=== PATIENT | female | born 1950 | race Caucasian/White ===

== ENCOUNTER 2017-01-18 09:52 | Inpatient (IN) | payer MEDICARE ==
[~2017-01-18] VITALS: Ht 157.5 cm; Wt 117.1 kg
--- NOTE | ~2017-01-18 | WND ---
ADMIT: 01/18/2017 RM/LOC: 508 [facility] MR#: [id number] [id number] [place], [place] [address] MATTHEW MCKINLEY [address] [place] [address] Wound Care Clinic SEX: F AGE: 66 : 1950 DATE OF VISIT: 01/24/2017 TIME IN: 1000 hours. TIME OUT: 1030 hours. REASON FOR VISIT: Re-evaluation of skin concerns. Request for wound care from Dr. Robert. HISTORY OF PRESENT ILLNESS: This is a 66-year-old, female, who was first seen by Wound Care on 01/19/2017. 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 She was treated at [facility]. She had lost mobility in her legs and was sent to [facility] for further evaluation and treatment. She is followed by Dr. Lars Robert from Neurology. It was also noted that she had a pelvic mass and she is being followed by Dr. Matilde Houston. She does have a biopsy scheduled for Interventional Radiology later today. She has also been seen by Dr. Tabares, who had noted that she never had a colonoscopy and certainly one could be done. However, it is not felt that this is related to the tumor around her spine nor her pelvic mass. Wound Care was consulted for cellulitis to her bilateral lower extremities. Current treatment to the right lower extremity is Aloe [place] applied daily to the left lower extremity where the ulcerations are, Xeroform applied daily. Wound Care returns today for further evaluation. REVIEW OF SYSTEMS: She is examined in her hospital room where she is awake, alert, and oriented x3. She is on a low air loss mattress. She is currently n.p.o. for her procedure later today. She denies any recent fever or chills. No nausea or vomiting. No cough, cold, or chest pain. She states her appetite has been decreased. She does have right hip pain but denies any pain to her left lower extremity. PHYSICAL EXAMINATION: VITAL SIGNS: 98.9, 90, 18, blood pressure 105/56, O2 sats on room air 96%. Focused exam is to her sacral, coccyx, and buttocks area, shows no open areas. Focused exam to the groin folds and pannus folds shows a clearing of her moisture-associated dermatitis. Focused exam to the right lower extremity shows a decrease in the brown plaques near her gaiter area. On the plantar surface of her heel is an area of old scar tissue. There are two openings; one that measures 1.5 x 0.4 with a depth of 0.2 cm and the other is 1 x 0.4 with depth of 0.2 cm. Both have pink wound bases. There is epithelialization down the sides of the wound. This is surrounded by old scar tissue. Posterior tibialis and dorsalis pedis is 1+. Focused exam to the left lower extremity shows a decrease in edema from previous exam today. Her foot measures 23.5 cm, ankle is 28.5 cm, and calf 20 ADMIT: 01/18/2017 RM/LOC: 508 [facility] MR#: [id number] [address] [place] [id number] MATTHEW MCKINLEY [address] [place] [address] Wound Care Clinic SEX: F AGE: 66 : 1950 cm, malleolus is 45.5 cm. She has an open area on the medial vargas that measures 1 x 1 with a depth of 0.1 cm and dark red base. More distal to this is an ulceration more anteriorly that measures 2 x 2.5 with a depth of 0.2 cm. 50% of the wound base is black eschar and 50% is red tissue. She also has a thin crust that measures 0.7 x 0.8 cm, dark brown in nature more laterally. None of these areas have any residual erythema noted. ASSESSMENT: 1. Healing bilateral lower extremity ulcerations. 2. Healing full-thickness cutaneous ulcerations, left lower extremity. 3. Healing moisture-associated dermatitis in the groin and pannus folds. TREATMENT PLAN: We will continue with the current treatment plans as already ordered including pressure relief methods. Aloe [place] to the bilateral lower extremities. Xeroform to the open areas on left lower extremity. To the heel, we will continue with the Mepilex border. Thank you for this referral. Wound will follow while she is inpatient. Melissa Wade APRN/ shelbie JOB #: [id number] CC: Sisi Garcia, Attending Physician Sisi Garcia, Family Physician
--- NOTE | ~2017-01-18 | WND ---
ADMIT: 01/18/2017 RM/LOC: 512 [facility] MR#: [id number] [id number] [place], [place] [address] MATTHEW MCKINLEY [address] [place] [address] Wound Care Clinic SEX: F AGE: 66 : 1950 DATE OF VISIT: 01/31/2017 TIME IN: 1155 hours. TIME OUT: 1210 hours. REASON FOR VISIT: Evaluation and treatment of skin concerns. A request for wound care from Dr. Robert. HISTORY OF PRESENT ILLNESS: This is a 66-year-old, female, first seen by Wound Care on 01/19/2017. 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 She was treated at [facility]. She has lost mobility in her legs and was sent to [facility] for further evaluation and treatment. She is followed by Dr. Lras Robert from Neurology. Dr. 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 Surgery was on 01/27/2017. This is her fourth postop day. During her surgery, she also had a pelvic exam under anesthesia. Dr. Houston reports that the uterus felt enlarged and anteverted but no palpable adnexal masses; however, limited secondary to the patient's body habitus. 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 She is now followed by Dr. Bedoya from Oncology. Plans are to eventually send her to [facility] for further evaluation and cares. It is also recommended that she have sigmoidoscopy or colonoscopy in the future. Wound Care has been following for skin concerns. On her last exam, the pannus folds and the buttocks were healed. Currently followed for bilateral lower extremity ulceration. REVIEW OF SYSTEMS: She is examined in her hospital room where she is sound asleep. She does not awaken to her name or at all during the exam. PHYSICAL EXAMINATION: VITAL SIGNS: Temperature is 97.6, pulse 62, respirations 18, blood pressure 120/53, O2 sats on room air is 97%. Focused exam to the right lower extremity shows foot circumference is 26 cm, ankle 32 cm, and calf 20 cm, malleolus is 44 cm. On the plantar heel is an area of callus material as well as a small slit that now measures 0.6 x 0.2 with a depth of 0.1 cm. It does have a pink base. The brownish plaques on her gaiter area are loosening and easily removed. She does have edema to her bilateral lower extremities with the right leg more swollen than the left. Posterior tibialis and dorsalis pedis is 1+ bilaterally. To the left lower extremity, foot circumference is 23 cm, ankle is 28 cm, and calf 20 cm, malleolus is 44.5 cm. To the medial side of her calf are two remaining ulcerations; one that measures 0.7 x 0.5 with depth of 0.1 and the second 1.5 x 1.5, depth of 0.2. Both have moist pink wound bases. The rest of her ulcerations are healed. She does have hyperpigmentation noted, periwound ADMIT: 01/18/2017 RM/LOC: 512 [facility] MR#: [id number] [address] [place] [phone] MATTHEW MCKINLEY [address] [place] [address] Wound Care Clinic SEX: F AGE: 66 : 1950 area. She does have changes associated with longstanding edema noted to bilateral lower extremities. ASSESSMENT: 1. Full-thickness healing ulceration to left lower extremity secondary to venous insufficiency and previous edema. 2. Healing wound and callus material, right heel. TREATMENT PLAN: The old dressings were removed without difficulty. The wounds were washed with warm soapy water, rinsed, and patted dry. The plaques were removed from bilateral gaiter area revealing pink tissue. To the left lower extremity, Xeroform was placed over the ulcerations, held in place with Kerlix. To the right heel area, a Mepilex border was applied. At this point in time, we will continue with current treatment plan. Continue to elevate her heels above the surfaces. Continue with position changes every 2 hours and Xeroform to the right lower extremity daily. Thank you for this referral and Wound will follow while she is inpatient. Melissa Wade APRN/ shelbie JOB #: [id number] CC: Sisi Garcia, Attending Physician Sisi Garcia, Family Physician
--- NOTE | ~2017-01-18 | PR ---
ADMIT: 01/18/2017 RM/LOC: 512 [facility] MR#: [id number] [id number] [place], [place] [address] PHUONG DONALDSON [address] [place] [address] Progress Note SEX: F AGE: 66 : 1950 DATE: 02/04/2017 Summary note to summarize hospital stay from January 18 through today, February 03, 2017. Ms. Donaldson was admitted initially on January 18 because she was unable to move her right leg. CT scan revealed severe stenosis, and she also had other workup that revealed a mass in the pelvis of 20 cm diameter encroaching and involving the psoas muscle on the right. Her urine was infected and eventually cultured E coli. Neurosurgery was consulted as was Gynecology and surgery. Neurosurgery recommended laminectomy once the urine infection was cleared. She was on antibiotics for 7 days, and a repeat urinalysis was negative. On January 27, she underwent open lumbar laminectomy of L5-4 and L5-sacral one. Neurosurgeon noted there was considerable scar tissue in the area, and Phuong may have suffered a little bit of cerebrospinal fluid leak. She was kept flat in bed for 48 hours postoperatively. During her anesthesia for the laminectomy, she also underwent pelvic exam and Pap test by the bioinformatics analyst, Dr. Houston. The final Pap result is still pending. Cervix looks normal by visual inspection according to Dr. Houston. The patient also had undergone a needle biopsy of the mass in the pelvis. That biopsy was done on January 24, 2017. 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 She also had a needle biopsy of a thyroid mass, which showed pathology of medullary carcinoma. To help elucidate the primary cancer causing the metastatic mass in her belly, she has undergone the Pap test as well as colonoscopy. Colonoscopy was today, February 03. Two polyps were biopsied in the left colon, but otherwise there was ADMIT: 01/18/2017 RM/LOC: 512 [facility] MR#: [id number] [address] [place], [place] [address] PHUONG DONALDSON [address] [place] [address] Progress Note SEX: F AGE: 66 : 1950 no obvious mass, stricture, or other abnormalities. No rectal or vulvar mass has been found. The patient started to have increasing bladder pain, and a repeat urinalysis on February 01 revealed pyuria once again. 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 Her Rocephin was switched to linezolid today, February 03. This patient has chronic partial paraplegia since the spine surgery approximately 20 years ago and has the diagnosis of subacute necrosis with secondary leg weakness for the last 20 years but had this abrupt change which brought her to the hospital. Sisi Garcia MD/ leigha JOB #: [id number] CC: Sisi Garcia MD, Attending Physician Sisi Garcia MD, Family Physician
--- NOTE | ~2017-01-18 | WND ---
ADMIT: 01/18/2017 RM/LOC: 508 [facility] MR#: [id number] [facility]#: [id number] [address] [address] MATTHEW MCKINLEY [address] [place] [address] Wound Care Clinic SEX: F AGE: 66 : 1950 DATE OF VISIT: 01/19/2017 TIME IN: 8:00 TIME OUT: 8:30 REASON FOR VISIT: Evaluation and treatment of bilateral lower extremities. This is request for wound care from Dr. Robert. HISTORY OF PRESENT ILLNESS: This is a 66-year-old female, who is a patient of Dr. Garcia. She has a history of a tumor that was diagnosed in 1989 as a benign spinal cord tumor. She was treated at [facility] and was partially removed. Since that time, she has been able to get around with a shuffling-type gait in a walker and has been able to care for herself. She was seen in the emergency room yesterday after she had more and more difficulty with movement. She was unable to lift her right leg. She was able to move her toes, and she also has difficulty with movement in her left foot. Therefore, she was admitted for further evaluation and care. Requests were sent to [facility] for the biopsy reports from her tumor. She states she has had ulcerations on her left lower extremity that has been on and off for "decades." She said she usually puts an antibiotic cream on it, she does not recall the name, it goes away; however, it reappears. She also states that she has never worn compression. PAST MEDICAL HISTORY: Chronic venous stasis, edema in bilateral lower extremities. Chronic cutaneous ulcerations in left leg. Severe stenosis. Obesity. Left hip pain. Chronic bilateral lower extremity edema. ALLERGIES: Codeine. CURRENT MEDICATIONS: 1. Cleocin. 2. Ditropan. 3. HydroDIURIL. 4. Klor-Con. 5. Lasix. 6. Lopressor. 7. Vasotec. 8. Lovenox. 9. Mycostatin powder. 10.Normal saline. P.r.n. Medications: 1. Advil. 2. Aspirin. 3. Colace. 4. Maalox. 5. Tylenol. 6. Tylenol suppository. 7. Nitrostat. ADMIT: 01/18/2017 RM/LOC: 508 [facility] MR#: [id number] [address] [address] MATTHEW MCKINLEY [address] [place] [address] Wound Care Clinic SEX: F AGE: 66 : 1950 8. Mycostatin powder. SOCIAL HISTORY: She is a high school education. She never smoked. She never used any alcohol or chemical use. She is single. She resides in [place]. She states her home she is living in does not accommodate a wheelchair. Records indicate she lives with her sister. She does not have any children. She is retired from rental clerk tool and equipment work. FAMILY HISTORY: According to records is significant for heart disease and hypertension. PAST SURGICAL HISTORY: Tonsillectomy and back surgery in 1989 with removal of benign spinal cord tumor. REVIEW OF SYSTEMS: She is examined in her bed, where she is awake, alert, and oriented x3. She denies any recent fever or chills. No nausea or vomiting. No cough, cold, or chest pain. She states her appetite has been good. No nausea or vomiting. She states she has no sensation to her legs; however, she does have extreme pain to her right hip that she relates to the abdominal tumor. PHYSICAL EXAMINATION: FOCUSED EXAM: Body-wide skin exam was done. She does have some moisture and slight redness in her pannus and groin folds. No ulcerations noted. To her bilateral lower extremities, she does have firm edema. She has squared off toes with Stemmer sign positive. She does have brownish plaque to the gaiter area of the bilateral lower extremities and she has been unable to reach her feet in order to wash them. To the right lower extremity, foot circumference is 26.5 cm, ankle 36 cm, and calf 20 cm, malleolus is 53 cm. Posterior tibialis and dorsalis pedis is 1+. On the anterior surface of her right leg is an area that measures 3 cm x 4 cm with red erythema. No open areas noted. No drainage noted. To the left lower extremity, foot circumference 23.5 cm, ankle 30.5 cm, and calf 20 cm, malleolus is 53 cm. She does have faint erythema noted from her knee down toward her gaiter area. On the medial anterior calf and vargas is an area that measures 7 x 16 cm that has increased redness and edema with scattered crust and open areas noted. Some serosanguineous drainage noted to the areas. Medially, on the left lower extremity vargas is an ulceration that measures 1.3 cm x 1.2 cm, depth of 0.2 cm. This initially had a crust that was removed revealing yellow base. Distal to this is an ulceration that measures 2.1 cm x 2.5 cm, depth of 0.2 cm. This has a bright red slightly dry wound base. Adjacent to this, more anteriorly is a thin crust that measures 0.8 cm x 1.2 cm. There is also more anteriorly a dark red crust that measures 0.7 cm x 0.7 cm. Periwound area shows the erythema as well as scarring from previous issues. ASSESSMENT: 1. Bilateral lower extremity venous insufficiency. Cutaneous full-thickness ADMIT: 01/18/2017 RM/LOC: 508 [facility] MR#: [id number] [address] [place] [phone] MATTHEW MCKINLEY [address] [place] [address] Wound Care Clinic SEX: F AGE: 66 : 1950 ulcerations of left lower extremity, complicated by cellulitis. 2. Moisture in groin and pannus folds. TREATMENT PLAN: She already has nystatin powder ordered twice a day. Requested that the staff wash the folds with warm soapy water and dry prior to the nystatin being applied to the groin folds. Recommended she be on a low air loss mattress as she is at high risk for further skin breakdown. Recommended chair air cushion. Heels floated off all surfaces. To the bilateral lower extremities, recommended daily wash with antibacterial soap and water. Aloe [place] applied to the lower extremities, especially to the areas of the brown plaques in order to soften and help them be removed. To the open areas on the left lower extremity, recommended Xeroform with Kerlix after washing. Size medium EdemaWear from the toes to popliteal crease to help with edema. She voiced understanding of physical findings and treatment plan. Thank you for this referral, and Wound will follow. Melissa Wade APRN/ shelbie JOB #: [id number] CC: Sisi Garcia, Attending Physician Sisi Garcia, Family Physician
--- NOTE | ~2017-01-18 | CO ---
ADMIT: 01/18/2017 RM/LOC: 508 [facility] MR#: [id number] [address] [address] MATTHEW MCKINLEY [address] [place] [address] Consultation SEX: F AGE: 66 : 1950 DATE OF CONSULTATION: 01/20/2017 ATTENDING PHYSICIAN: Sisi Garcia CONSULTING PHYSICIAN: Matilde Houston MD REASON FOR CONSULTATION: Pelvic mass. HISTORY OF PRESENT ILLNESS: This is a 66-year-old female who was admitted to the emergency room on 01/18/2017. She presented to the emergency room with complaints of lower extremity weakness. Per her history, she did have surgery for a benign spinal cord tumor back in 1989. She does report that there was some "permanent damage," and she did require using a walker to walk. Over the past two years, she has been increasingly using a wheelchair, but has been able to shuffle and go 10 to 15 feet with her walker around her house. On the morning of admission, she was noted that she could not move her legs as much and this made her panic and therefore, she presented to the emergency room. While in the emergency room, she did have an MRI scan of her lumbar spine showing severe lumbar spinal stenosis as well as the tumor extending into the right iliopsoas muscle. Subsequently, she had both pelvic CT and pelvic ultrasound, which demonstrated a large complex mass, at least partially cystic in the right adnexal region measuring approximately 12 to 20 cm in craniocaudal dimension. The mass is difficult to determine if it is extending from the ovary and it is difficult to measure given irregular in nature. PAST MEDICAL HISTORY: She has chronic venous stasis and edema in both lower extremities, hypertension, urinary urgency. She denies history of diabetes, asthma, kidney problems, or thyroid problems. PAST SURGICAL HISTORY: Tonsillectomy and removal of paraspinous tumor in 1989. SOCIAL HISTORY: She is not . She does not have any children. She has never been . She denies tobacco, excessive alcohol, or drug use. ALLERGIES: CODEINE. CURRENT MEDICATIONS: Enalapril/hydrochlorothiazide 10/25 one p.o. daily, fish oil 1000 mg b.i.d., Lasix 20 mg b.i.d., Lopressor 25 mg daily, oxybutynin extended-release 10 mg daily, potassium 20 mEq two b.i.d., aspirin 325 mg daily. REVIEW OF SYSTEMS: GENERAL: She does report a gradual decline with her ability to get around. She denies fevers, chills, weight loss, or weight gain. HEENT: She denies headaches, vision changes, difficulty swallowing, sore throat. NECK: She denies neck pain or stiffness. RESPIRATORY: She denies coughing or shortness of breath. ADMIT: 01/18/2017 RM/LOC: 508 [facility] MR#: [id number] [address] [place], [place] [id number] MATTHEW MCKINLEY [address] [place] [address] Consultation SEX: F AGE: 66 : 1950 CARDIOVASCULAR: She has history of hypertension. She denies chest pain, palpitations, or shortness of breath. GASTROINTESTINAL: She denies any changes in her stools, abdominal pain, nausea, or vomiting. GENITOURINARY: She does have problems with chronic urinary incontinence. She does wear protection daily for this. She denies postmenopausal bleeding, pelvic pain, or vaginal bleeding at all. MUSCULOSKELETAL: She does have history of surgery on her back for a spinal cord tumor and chronic lower leg extremity weakness. NEUROLOGIC: Again, she has history of surgery on her back and spinal cord. She does have chronic right lower extremity weakness more so than the left. PHYSICAL EXAMINATION: VITAL SIGNS: Temperature is 99.3, pulse 84, respirations 18, blood pressure is 130/66. GENERAL: This is a pleasant female, in no acute distress. ABDOMEN: Obese. She has some tenderness on the left side. There is no guarding or rebound. Her abdomen is soft, difficult to palpate any abdominal mass. PELVIC: Deferred at this time given her inability to cooperate. EXTREMITIES: She does have marked edema in both extremities, and chronic venous stasis. Her strength and motion are limited bilaterally. LABORATORY DATA: White blood cell count is 11.7, hemoglobin 8.7, hematocrit 29.4, platelet count 509. Hemoglobin A1c is 6.6. Sodium 138, potassium 3.9, chloride 104, CO2 is 25, BUN 19, creatinine 0.5, glucose 122, calcium 10. Urine culture does show gram-negative rods. An MRI of the spine showed severe acquired central stenosis L4-L5, severe degenerative changes at L3-L4. CT scan of the abdomen shows a complex septated cystic mass within the right iliopsoas muscle extending from the level of L2 inferiorly infiltrating the psoas muscle and extending into the right side of the pelvis, measuring approximately 20 x 9.6 cm. Ultrasound confirms a large complex cystic mass on the right adnexal region, measuring approximately 12.7 x 8 x 8 cm. IMPRESSION: 1. This is a 66-year-old female, 0 with acute weakness in her right leg on top of chronic lower extremity weakness secondary to previous surgery for a spinal cord tumor. 2. Pelvic mass of uncertain origin. ADMIT: 01/18/2017 RM/LOC: 508 [facility] MR#: [id number] [address] [address] MATTHEW MCKINLEY [address] [place] [address] Consultation SEX: F AGE: 66 : 1950 3. Hypertension. 4. Chronic urge incontinence. 5. Morbid obesity. 6. Chronic venous insufficiency. 7. History of Foix-Alajouanine syndrome. PLAN: At this time, I am uncertain that this pelvic mass is contributing to her weakness or ovarian in nature. We will draw a CA-125 and the plan discussed with [facility]Oncology in [place]. If they do feel it is concerning enough, we will consider transfer to [place] for further management. Otherwise, we can consider CT-guided biopsy of this mass in an attempt to get a better diagnostic picture. Matilde Houston MD/ shelbie JOB #: [id number] CC: Sisi Garcia, Attending Physician Sisi Garcia, Family Physician
--- NOTE | 2017-01-19 08:12 | HP ---
ADMIT: 01/18/2017 RM/LOC: 508 [facility] MR#: [id number] [id number] [place], [place] [address] MATTHEW MCKINLEY [address] [place] [address] History and Physical SEX: F AGE: 66 : 1950 DATE OF SERVICE: CHIEF COMPLAINT: Inability to use right leg. HISTORY OF PRESENT ILLNESS: José Manuel is a very nice 66-year-old female, who is a patient of Dr. Garcia and our office. 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 It was pressing on her spinal cord. She had it partially removed in [place] that year. Since then, she has been able to get around with a shuffling type gait, had been using a walker up until about 2-3 years ago. Since then, she states it is getting harder and harder for her to walk primarily due to right leg weakness. She is still able to move her leg and can get around with a walker up until today. She has been using a wheelchair quite a bit the last 2 years, but at home if she needs to go 10-15 feet, she can get there with her walker. She does live with her twin sister who helps care for her. She does have a modified car and was able to drive up until recently. Nothing unusual happened yesterday, however, this morning when she awakened, her right leg would not respond, she could get it to move. She can wiggle her toes on the right foot but could not move her right leg at all. Denies any pain. Denies any injury or trauma. She was brought into the emergency room and MRI scan of her lumbar spine shows severe lumbar spinal stenosis. She also has a tumor in the right iliopsoas muscle either cyst or blood versus soft-tissue tumor, they were not able to identify it completely. Dr. Lars Robert, neurosurgeon is seeing her in the emergency room has asked that we admit her for medical care and he will consult. She does have chronic venous stasis and edema of both lower extremities and chronic sores, ulcerations on the left leg, but no sores in the right leg. She denies any recent problems with fevers, chest pain, or shortness of breath. PAST MEDICAL HISTORY: OPERATIONS: The only surgery she has tonsillectomy in her youth and the back surgery in 1989, removal of spinal cord tumor that she says was benign and they got most of it. SOCIAL HISTORY: Never . No children. Does not use tobacco. Drinks alcohol very rarely socially. She lives with her twin sister, Clarice. FAMILY HISTORY: Father in his 60s of kidney failure. He had COPD. Mother in her late 60s of lung condition. She has older sister who recently at age 83 of a stroke. Her twin sister had an HI a year ago and her brother has history of colon cancer and has had a heart valve replaced x2. ALLERGIES: CODEINE. MEDICATIONS: 1. She takes enalapril/hydrochlorothiazide 10/25 one daily. ADMIT: 01/18/2017 RM/LOC: 508 [facility] MR#: [id number] [address] [place] [id number] MATTHEW MCKINLEY [address] [place] [address] History and Physical SEX: F AGE: 66 : 1950 2. Fish oil 1000 mg b.i.d. 3. Lasix 20 mg b.i.d. 4. Lopressor 25 mg daily. 5. Oxybutynin extended release 10 mg daily. 6. Potassium 20 mEq two b.i.d. 7. Aspirin 325 mg daily. REVIEW OF SYSTEMS: GENERAL: She states she has had a gradual decline in the last couple years in her ability to get around at home and she is using a wheelchair much more now than she used to. She used to get around with a walker as noted above. She denies any weight change, any recent fever or appetite change. HEENT: Denies any headache, blurry vision, or double vision. PULMONARY: Denies any cough, shortness of breath. CARDIAC: History of hypertension. No chest pain. GI: No change in stools and no abdominal pain. : Chronic urinary incontinence. Wears Depends. MUSCULOSKELETAL and NEUROLOGICAL: The spinal cord tumor surgery is noted. Lower leg extremity weakness with the right leg weaker than the left leg which is chronic and not acute. Right leg weakness noted above in HPI. Rest of review of systems negative. PHYSICAL EXAM: GENERAL: A 66-year-old female. She is alert, cooperative, oriented x3. VITAL SIGNS: BP is 120/78, respiratory rate 22, pulse 72 and regular, temp 98.2, and O2 saturation 94% on room air. HEENT: Eyes; PERRLA. EOMs intact. TMs not seen. Throat is moist, not inflamed. NECK: Supple. No meningeal signs. No lymphadenopathy. LUNGS: Clear anteriorly. No respiratory distress. No retractions. HEART: Regular rate. No murmur. BREASTS: Not examined. ABDOMEN: Obese. No organomegaly or tenderness. /RECTAL: Deferred. EXTREMITIES: She has marked edema of both lower extremities with chronic venous stasis dermatitis changes and some venous insufficiency type abrasions/ulcers on her left lower extremity with some brownish discolored skin there. Right lower extremity does not have any sores on it. Calves are nontender. She can move her left leg, flexing her knee only about 10 degrees. She cannot really flex her hip up at all. She is able to wiggle her left ankle freely. Right leg, she is not able to move at all. She can wiggle her toes, but that said she cannot get any foot or ankle movement or known knee movement. 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 DIAGNOSTIC IMPRESSION: ADMIT: 01/18/2017 RM/LOC: 508 [facility] MR#: [id number] [address] [address] MATTHEW MCKINLEY [address] [place] [address] History and Physical SEX: F AGE: 66 : 1950 1. 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 2. History of Foix-Alajouanine syndrome. 3. Hypertension. 4. Chronic urge incontinence. 5. Morbid obesity. 6. Chronic venous insufficiency. PLAN: Admit to hospital at this time. We will continue on her blood pressure medications. Lovenox for DVT prophylaxis if this is okay with Neurosurgery. Dr. Robert asked to review her films and her exam to determine if there is anything that can be done surgically. Les Billy MD/ shelbie JOB #: [id number] CC: Sisi Garcia, Attending Physician Sisi Garcia, Family Physician
--- NOTE | 2017-01-25 15:26 | CO ---
ADMIT: 01/18/2017 RM/LOC: 508 [facility] MR#: [id number] ACC#: [id number] [address] [address] MATTHEW DONALDSON [address] [place] [id number] Consultation SEX: F AGE: 66 : 1950 DATE OF CONSULTATION: 01/19/2017 ATTENDING PHYSICIAN: Sisi Garcia CONSULTING PHYSICIAN: Lars Robert MD REASON FOR CONSULTATION: Weakness. HISTORY OF PRESENT ILLNESS: I was called to the ER to see the patient. She has had a couple years worth of swelling in her legs and some difficulties ambulating that had been getting worse over that time, especially worse over the last few months, and she awakened today with inability to support her own weight. She had been utilizing a walker ever since she was diagnosed with some paraspinous tumors in 1989, there has apparently been no followup on this at any point, she said she was told that they were slow-growing benign tumors and there is no sign that she has had any imaging in the last 27 years after the initial biopsy, she does not know the type of tumors or the final formal diagnosis. She has had occasional urinary incontinence that is chronic. No noted urinary incontinence or constipation or bowel incontinence today. PAST MEDICAL HISTORY: 1. Tonsillectomy. 2. Paraspinous tumor in 1989. 3. Urinary urgency. 4. Hypokalemia. 5. Hypertension. 6. Chronically edematous legs with nonhealing wounds. MEDICATIONS: 1. Oxybutynin. 2. Potassium chloride. 3. Metoprolol. 4. Furosemide. 5. Enalapril. 6. Hydrochlorothiazide. 7. Aspirin. 8. Ibuprofen. 9. Aleve. SOCIAL HISTORY: She is a nonsmoker, drinks rarely, lives with her sister, and is not . FAMILY HISTORY: Renal failure, COPD, stroke, myocardial infarction, and colon cancer. ALLERGIES: CODEINE. REVIEW OF SYSTEMS: Complete review of systems was obtained with pertinent positives annotated in the history of present illness. ADMIT: 01/18/2017 RM/LOC: 508 [facility] MR#: [id number] [address] [address] MATTHEW DONALDSON [address] [place] [address] Consultation SEX: F AGE: 66 : 1950 PHYSICAL EXAMINATION: VITAL SIGNS: 98 degrees, 95 beats, 20 respirations, 146/57, 97% on room air. GENERAL: She is an unhealthy appearing 66-year-old woman, who is very morbidly obese. HEENT: She has an atraumatic head. No scleral icterus. Clear oropharynx. ABDOMEN: Obese, nontender. CHEST: Normal respiratory excursion. EXTREMITIES: With 2+ radial pulses. Severe edema in her legs, with the left leg with nonhealing wounds and erythema. No clear purulence. NEUROLOGICAL EXAMINATION: MENTAL STATUS: She is awake, alert, and oriented x4. She has no dysphonia, dysarthria, or aphasia. Her affect is appropriate. Thought content is normal. CRANIAL NERVES: Cranial nerves II through XII are individually tested and found to be intact without deficit. MOTOR EXAM: Motor exam reveals 5/5 strength in the upper extremities, 2/5 strength in bilateral lower extremities. DEEP TENDON REFLEXES: With 0/4 in the lower extremities, 2/4 in the upper extremities. SENSATION: Decreased below the knees to light touch, appears to be normal above the knees, appears to be normal in the arms. CEREBELLAR: No cerebellar signs. GAIT: Not testable. LABORATORY DATA: White count 12.5. Sedimentation rate 88. Urine is cloudy with 3+ leuk esterase. ASSESSMENT AND PLAN: Ms. Donaldson is an unfortunate woman with subacute deterioration. Without knowing the history on these tumors, I cannot say if this is something that has had malignant degeneration. She has multiple tumors in the iliopsoas and anterior to the spinal column as well. I do not see any sign of there being a tumor in her back. She does have prior laminectomy defects. There is severe acquired degenerative stenosis at lumbar 4-5 with complete canal occlusion and is a lesion alongside the 2-3 level in the psoas musculature extending down to the 3-4 level. There are also what appears to be multiple cystic possibly lesions distal to that as well as some lesions in the gluteal region as well, mostly on the right. I spoke with Dr. Ferreira, we are going to attempt to get an EMG and nerve conduction study to evaluate whether this is a lumbosacral plexopathy, I think he is aware she is likely going to need surgery for her acquired degenerative disease in her back which would be a laminectomy. Could possibly consider minimally invasive laminectomy although with her prior surgical history, it may be easier to continue from midline and fashion an open laminectomy. I do not see anything intracanalicular. I do want to obtain the reports from the [facility] if they ADMIT: 01/18/2017 RM/LOC: 508 [facility] MR#: [id number] [facility] [address] MATTHEW DONALDSON [address] [place] [address] Consultation SEX: F AGE: 66 : 1950 have been following, if the tumors in the psoas muscle or what the initial presentation was, we need to find out what those are or if this laminectomy was for an intradural exploration and resection, then that may be a different matter. Although, it would certainly make a laminectomy little more difficult going back to scar tissue with a prior durotomy. It is also possible to have malignant degeneration in what I presumed would be a schwannoma or neurofibroma; if that is the case, we will need to know that she may end up needing a biopsy of these other tumors. At this point, I do not know that if she is stable for surgical intervention with a high white count and a sedimentation rate of 88 that will need to be worked up further prior to any consideration of surgical intervention. I will plan to follow along while she is in the hospital here. Lars Robert MD/ shelbie JOB #: [id number] CC: Sisi Garcia, Attending Physician Sisi Garcia, Family Physician
--- NOTE | 2017-01-30 08:23 | OR ---
ADMIT: 01/18/2017 RM/LOC: 508 [facility] MR#: [id number] [address] [address] MATTHEW MCKINLEY [address] [place] [address] Operative/Delivery Room Report SEX: F AGE: 66 : 1950 SURGERY DATE: 01/27/2017 SURGEON: Lars Robert MD PREOPERATIVE DIAGNOSIS: Bilateral lower extremity weakness multifactorial in nature with severe stenosis lumbar 4-5. POSTOPERATIVE DIAGNOSIS: Bilateral lower extremity weakness multifactorial in nature with severe stenosis lumbar 4-5. PROCEDURES: 1. Lumbar 4-5 laminectomy. 2. Lumbar 5 and sacral 1 laminectomy. This case was substantially more difficult than otherwise usually encountered because the patient is approximately 30 years out from an intradural exploration and long segment laminectomy with degeneration at the endpoint of the prior laminectomy with severe scar tissue, bony overgrowth, and hypertrophy making this case substantially more difficult than usual. DESCRIPTION OF PROCEDURE: After gaining informed consent, the patient was taken to the operative theater, placed under general endotracheal anesthesia in supine position, turned prone on a Corey table. All pressure points purposely padded prior to performing the procedure. She was prepped and draped in usual sterile fashion. A time-out was utilized to ascertain the correct site and side of surgery as well as other pertinent patient historical information. Counts were obtained at the beginning and the end of the case with no change betwixt the two. Antibiotics were given within 1 hour of incision. Fluoroscope was brought into the field and was very difficult to determine levels because of the degenerative change prior to surgical intervention, and the patient has severe morbid obesity. The 4-5 level was delineated, and the inferior aspect of the prior incision was opened. After evaluation, it was difficult to place retractors due to her size and sequentially this was opened somewhat more cephalad and then had to be opened more caudally. The scar tissue was very deceiving as it was so tightly and densely adherent. I could not directly palpate bony anatomy. I was able finally to find some of the facets laterally that were more cephalad to the case. The patient had been basically recumbence in bed and her tissues were weeped edematous fluid at times during the case, although at one point, I was uncertain as to whether I was seeing that fluid were possible cerebral spinal fluid. As such, I made the determination to utilize DuraSeal at the end of the case. I finally was able to discern the L5 spinous process and very cautiously dissected down, although was densely adherent. Utilizing various curettes, rongeurs, and a high-speed drill, I fashioned the laminectomy inferiorly at the L5-S1 space and extended up. After starting at the L5-S1 level, I was very cautiously able to take this up, although there was a clear step-off of scar tissue and I was finally able to reveal dura above the 4-5 area. At this point, I turned ADMIT: 01/18/2017 RM/LOC: 508 [facility] MR#: [id number] [address] [address] MATTHEW MCKINLEY [address] [place] [address] Operative/Delivery Room Report SEX: F AGE: 66 : 1950 my attention to very cautiously decompressing this area where the scar tissue was densely adherent over top of the dura. I was not able to resect all of it without very high risk of resecting dura as well. I was finally able to remove enough to appear to decompress the thecal sac and to be able to sound into the neural foramina at 4-5 on the left. The right was so densely adherent. I was able to strip this free somewhat but had some continued scar tissue over top. Once I was finished with all of this, attention was turned to closure. Because of the question of possible CSF leak versus edematous fluid drainage, I decided to place a multilayer closure. I used 4 different packs of 0 Ethibond in a simple running fashion at 4 different levels within the scar tissue and scarred down musculature. Then, finally completing the closure with simple inverted interrupted 2-0 Vicryl and simple running 3-0 Nurolon on the skin. ESTIMATED BLOOD LOSS: 100 mL. SPECIMEN: Posterior elements. DISPOSITION: Extubated and taken to postanesthesia care unit. Lars Robert MD/ shelbie JOB #: [id number] CC: Sisi Garcia, Attending Physician Sisi Garcia, Family Physician
--- NOTE | 2017-02-04 08:17 | ER ---
ADMIT: 01/18/2017 RM/LOC: 508 [facility] MR#: [id number] [address] [place], [place] [address] MATTHEW MCKINLEY [address] [place] [address] Emergency Room Report SEX: F AGE: 66 : 1950 DATE: 01/18/2017 ADDENDUM: CHIEF COMPLAINT: Right leg unable to move. HISTORY OF PRESENT ILLNESS: This is a 66-year-old female, who has a known tumor in her spinal area that was diagnosed in 1989. When she presents to the ER, she says she thinks this tumor is wrapped around her spinal cord, but they have just been watching it. In fact, she has not seen a neurosurgeon since 1989, has not had any scans since that year also. On examination, she does have movement with her toes, but was not able to lift up the right leg. The left leg, she is able to lift up, but she really does not have much motion also with her left foot. When asking about incontinence or loss of bowel, bowels have been okay, but she has been incontinent for a few months now. COURSE IN THE EMERGENCY ROOM: I did do an MRI of her back. Overall findings, she does have severe central stenosis at L4-L5 with broad-based disk bulge. Also severe stenosis in the foramen, both on the right and left. Severe degenerative changes at L3-L4 and then also a mass in the psoas muscle. Both Dr. Lars Robert and Dr. Billy were contacted. Dr. Billy is admitting. Dr. Robert is consulting. CLINICAL IMPRESSION: 1. Severe stenosis at L4-L5. 2. Psoas muscle mass. DISPOSITION: She is stable at admit. MARY ANN Jules / Abel Ruiz MD / shelbie JOB #: [id number] CC: Sisi Garcia MD, Attending Physician Sisi Garcia MD, Family Physician
--- NOTE | 2017-02-12 14:54 | DS ---
ADMIT: 01/18/2017 RM/LOC: 512 [facility] MR#: [id number] [id number] [place], [place] [address] MATTHEW MCKINLEY [address] [place] [address] Discharge Summary SEX: F AGE: 66 : 1950 ADMISSION DATE: 01/18/2017 DISCHARGE DATE: 02/04/2017 FINAL DIAGNOSES: On transfer are: 1. 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 2. Severe spinal stenosis status post lumbar laminectomy at L4-5 and L5-S1 on 01/27/2017. 3. Urinary tract infection initially E. (Escherichia) coli treated and then recurrent infection diagnosed VRE (Vancomycin-resistant enterococci) by culture on 02/03/2017. 4. 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 5. Colonoscopy performed 02/03/2017 with polyps biopsied x2 but otherwise normal findings. 6. Pap smear with negative HPV and normal pathology done on 01/27/2017 under anesthesia. 7. Iron deficiency anemia. 8. Item chronic venous stasis with venous stasis ulcers of the lower legs followed by Wound Care. 9. Depression. 10.Chronic incontinence related to her chronic partial paraplegia. 11.Subacute necrosis secondary to spine surgery for benign tumor in the 1990s (we do not have notes from that procedure but patient has had chronic weakness requiring a walker and now wheelchair bound with steady progression). 12.Hypertension treated. 13.Hypercalcemia of malignancy newly diagnosed here in the hospital. Matthew has been living at home with her sister who has been caring for her for years. She has been somewhat noncompliant, comes to see me about once a year to refill her blood pressure pills but would decline other workup for her chronic incontinence and chronic paraplegia. She has venous stasis edema and would develop intermittent lower extremity venous stasis wounds, which would be treated topically. On the evening of January 18, she came to the hospital because that day she woke up and could not move her right leg at all which was new. She had scans and workup which is included with the transfer information. Essentially, CT showed severe spinal stenosis in the lower lumbar area, and Neurosurgery was consulted. She also had urinary tract infection which eventually cultured E. coli with multiple sensitivities. She was placed on antibiotics to clear the bladder infection prior to a planned laminectomy. As part of this workup, we also found an incidental mass in the pelvis. It is a large cystic mass, 20 cm, with some other cystic structures around it and uncertain etiology. Also as part of the workup, scan showed a thyroid nodule. For those reasons, both the thyroid and the mass in the belly were biopsied by Interventional Radiology on January 24, 2017. On January 27 after a repeat urine was clear and blood cultures had remained clear, she underwent her laminectomy, and at the same date had Pap testing under anesthesia. Surgery was complicated by lots of scar tissue and ADMIT: 01/18/2017 RM/LOC: 512 [facility] MR#: [id number] [address] [address] MATTHEW MCKINLEY [address] [place] [address] Discharge Summary SEX: F AGE: 66 : 1950 according to the neurosurgeon, there was concern for CSF leak. Therefore, she was on strict bed rest laying flat for 48 hours postoperatively. She denied headache when she was able to sit up. She has had no vomiting. She complains of low back pain, however. Over the course of the next several days, she had minimal improvement in activity. She is still incontinent and ran a fever again about 4 days postop, so repeat blood cultures and urinalysis were done. Urine showed bacteria, and so I restarted her on antibiotic with IV Rocephin because her initial culture showed sensitivity to that. However, today we did get the culture of the urine back, which shows VRE, so I am changing antibiotic coverage to linezolid. At this point, we have done all of the workup that is possible at our facility. Patient requires consultation with oncologic surgeon, and Dr. Stefany France is the recommended home performance consultant per our local oncologist. Consultants here in our hospital have included Dr. Augustin Bedoya with Oncology, Dr. Beto Tabares with General Surgery who did her colonoscopy, Interventional Radiology, who did her thyroid needle biopsy and the needle biopsy of the mass in the pelvis, and Dr. Matilde Houston with Gynecology and Dr. Lars Robert with Neurosurgery. She also has been followed by Wound Care. During the hospital stay, she has received a transfusion of 1 unit of packed red cells prior to her back surgery because hemoglobin was 7.4, and there was concern about bleeding. She had minimal blood loss, however, and her hemoglobins remained stable above 8 ever since then. She also had 1 dose of IV Venofer administered on 01/26/2017. The patient has been on IV fluids to replace potassium and also has intermittent replacement for low magnesium. Her albumin is low. She is morbidly obese but has poor muscle mass and muscle tone due to her years of debilitation. ADMIT: 01/18/2017 RM/LOC: 512 [facility] MR#: [id number] [facility] [address] [address] MATTHEW MCKINLEY [address] [place] [address] Discharge Summary SEX: F AGE: 66 : 1950 Finally, she had chronic incontinence and we did not initially place a Mcgill catheter but did place that 4 days ago because of incontinence and concern for skin breakdown. Mcgill catheter will be left in as we treat her VRE as well. On transfer to [facility] as planned, we will send laboratory notes and imaging studies. The plan is for transfer under the hospitalist's care and for consultation with oncologic surgeon to discover the primary tumor if possible that has led to this metastatic mass in the pelvis. The patient understands she has multiple medical conditions and that her care will be complicated but agrees to go to [facility] and wants to proceed with further evaluation. CODE STATUS: Full code and that was confirmed again today. Sisi Garcia MD/ leigha JOB #: [id number] CC: Sisi Garcia MD, Attending Physician Sisi Garcia MD, Family Physician
--- NOTE | 2017-02-13 08:37 | CO ---
ADMIT: 01/18/2017 RM/LOC: 508 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 HISTORY OF PRESENT ILLNESS: This is a 66-year-old female, who is currently on hospital day #7 following initial complaint of inability to stand or walk. She is also postoperative day #1 from a lumbar laminectomy and is currently on bed rest following this surgery for some concern of a CSF leak. She has a past medical history significant for a benign spinal tumor removed in 1989 and subsequently did have difficulty walking after this. She had been getting by with using a walker, but has more had to rely on wheelchairs and electric scooters getting around large retail stores. She also notes the development of some urinary incontinence related to her not being able to feel the urgency to go. She does confirm that she has some flushing although unable to quantify and does not seem to think this is too significant. Currently, she has increased lower back pain following her surgery from last night as her main complaint at this time. She denies any postmenopausal bleeding, any problems with headaches now or in the past, heart palpitations or racing heart problems. She has no dysphagia and her bowels have been functioning normally prior to hospitalization. During her week in the hospital, there has been a discovery of a 20-cm by cranial caudal measurements, irregularly shaped mass in her right pelvic area. There does seem to be a smaller and large mass near the kidney possibly adrenal. No significant liver metastasis or lung masses have been detected on CT scan. There was incidental discovery of a left-sided thyroid mass measuring 2.6 x 2.2 cm, which has subsequently been biopsied by fine needle aspiration. 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 The pelvic mass has been biopsied with core needle and prelim verbal path is confirmatory that this is not a sarcoma, but rather carcinoma with a suspicion of squamous cell histology. The mass is eroding into her right psoas muscle which likely has contributed to her increasing right-sided leg weakness. There does not appear to be any involvement of the mass with the spinal cord based on MRI and the laminectomy performed last night was more secondary to her severe stenosis rather than mass in patient. Additional imaging of her uterus reveals a thickened endometrium, which is not uncommon for someone obese as well as multiple fibroids present. She has not had any upper or lower scopes performed. PAST MEDICAL HISTORY: Significant for obesity, hypertension, chronic venous stasis and chronic edema in lower extremities, lower extremity weakness secondary to benign spinal tumor removal. ADMIT: 01/18/2017 RM/LOC: 508 [facility] MR#: [id number] [address] [place] [phone] ARLEN MATTHEW A [address] [place] [address] Consultation SEX: F AGE: 66 : 1950 PAST SURGICAL HISTORY: Tonsillectomy and paraspinous tumor in 1989. SOCIAL HISTORY: The patient is not , and does not have children, never been . She denies any tobacco or drug use and does not consume alcohol on a regular basis. She lives at home with her sister who is in better medical condition than she. ALLERGIES: CODEINE. MEDICATIONS: 1. Enalapril/hydrochlorothiazide. 2. Fish oil. 3. Lasix 20 b.i.d. 4. Lopressor 25 mg daily. 5. Oxybutynin ER. 6. Potassium 20 mEq b.i.d. 7. Aspirin 325. FAMILY HISTORY: Brother with colon cancer post surgery and chemo with no evidence of disease. No other family cancers, thyroid cancers, or renal cancers in family. REVIEW OF SYSTEMS: A complete review of systems was conducted and found to be negative except for what was mentioned above in HPI. PHYSICAL EXAMINATION: VITAL SIGNS: Temperature 99.7, pulse 97, respiratory rate 14, blood pressure 125/71, saturating 91% on room air. GENERAL: This is an obese, alert, and orientated female lying flat in a hospital bed. HEENT: Pupils are equal, round, react to light. Mouth is dry. Mucous membranes with no oral lesions. NECK: Difficult to appreciate due to obesity, but no detectable thyroid masses or lymphadenopathy. Trachea is midline. HEART: Regular rate and rhythm with no murmurs, rubs, or gallops. Distant heart sounds. ABDOMEN: Tender to palpation diffusely, obese, no appreciable hepatosplenomegaly. No appreciable masses. Bowel sounds are positive. EXTREMITIES: No clubbing, no cyanosis. There are 2 to 3+ edema in all dependent areas. MUSCULOSKELETAL: Right lower extremity is externally rotated. Unable to perform full muscle exam due to the patient's current acute pain following back surgery and requested bedrest status. She is able to wiggle her toes and dorsiflex and plantar flex her feet, but effort is decreased secondary to pain. NEUROLOGIC: Cranial nerves II through XII are grossly intact. Decreased sensation in her left toes compared to the right, unable to perform full neuro exam due to postsurgical state. PSYCH: Mood is euthymic. Affect is full and mood congruent. SKIN: No unusual masses such as neurofibromas or pigmented lesions detected, ADMIT: 01/18/2017 RM/LOC: 508 [facility] MR#: [id number] [address] [address] MATTHEW MCKINLEY [address] [place] [address] Consultation SEX: F AGE: 66 : 1950 no rashes. LABORATORY AND RADIOLOGY: WBC 14.3, hemoglobin 8.7, platelets 380. Sodium 139, potassium 3.9, bicarb 27, BUN 18, creatinine 0.6, calcium 10.7 with corrected calcium 12.6. Albumin 1.6, AST 14, ALT 12, alkaline phosphatase 114, total bilirubin 0.6. Pelvic ultrasound, thyroid ultrasound reports reviewed. Summarized above. CT chest, abdomen, pelvis images were reviewed as well as the reports. Summarized ramsey findings above. Pathology; thyroid FNA final diagnosis: Spindle cell neoplasm suspicious for medullary carcinoma. Pelvic mass final path not back. Verbal path is carcinoma not sarcoma suspicious for squamous cell carcinoma. IMPRESSION/RECOMMENDATION: A 66-year-old female with large pelvic mass and thyroid mass as well as lumbar stenosis. 1. Thyroid mass. 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 Her corrected calcium is elevated at 12.6. Thus, we will send for PTH to see if this is normal or elevated inappropriately. We will also send for MTC tumor markers, calcitonin, and CEA. It is unlikely that this medullary thyroid cancer has spread to her pelvis and is creating such a large mass in my opinion. 2. Pelvic mass. Final pathology is pending at this time. The squamous carcinoma prelim path would make it an unusual histology for ovarian or uterine origin although not impossible. There are no suspicious lung masses, and she is a nonsmoker and she does not have any dysphagia or iron deficiency anemia. Thus, there would be low yield for upper and lower scopes. We will await for the final pathology report an additional ADMIT: 01/18/2017 RM/LOC: 508 [facility] MR#: [id number] [address] [place] [phone] MATTHEW MCKINLEY [address] [place] [address] Consultation SEX: F AGE: 66 : 1950 pathologist insight prior to determining treatment plan. We will consider sending previously biopsied tissue for [employer] genetic testing to identify any potential target triple mutations. 3. Lumbar stenosis. This appears to be not related to direct mass extension but rather sequelae from remote spinal surgery. Potentially involvement of the right psoas muscle has progressed her lower extremity weakness beyond her borderline baseline status but additional tumor interventions to improve her lower extremity weakness is not needed urgently. We will focus on standard laminectomy recovery for now guided by Neurosurgery. Thank you for this very interesting consultation. Please call with any further questions. I will continue to follow along. Greater than 90 minutes were spent for this consultation. Augustin Bedoya MD/ shelbie JOB #: [id number] CC: Sisi Garcia, Attending Physician Sisi Garcia, Family Physician
--- NOTE | 2017-02-16 09:08 | OR ---
ADMIT: 01/18/2017 RM/LOC: 8 [facility] MR#: [id number] [address] [place] [phone] MATTHEW MCKINLEY [address] [place] [address] Operative/Delivery Room Report SEX: F AGE: 66 : 1950 SURGERY DATE: 01/27/2017 SURGEON: Matilde Houston MD PREOPERATIVE DIAGNOSIS: Need for pelvic exam. Unable to perform in the office or hospital. POSTOPERATIVE DIAGNOSIS: Need for pelvic exam. Unable to perform in the office or hospital. PROCEDURE: Exam under anesthesia. ANESTHESIA: General. COMPLICATIONS: None. ESTIMATED BLOOD LOSS: None. FLUIDS: Crystalloid. INDICATIONS: This is a 66-year-old female, 0, whom I have been seeing and following in the hospital. She was noted to have a large pelvic mass that was CT-guided biopsied by Interventional Radiology. This did return suspicious for squamous cell carcinoma, therefore I did discuss proceeding with a pelvic exam under anesthesia at the time of her previously scheduled laminectomy. We did review the risks and benefits and she agreed. FINDINGS: Normal female external genitalia. Bartholin, urethral, and [place] glands are normal. The vulva and vagina normal. Cervix has a normal appearance. The uterus does feel enlarged, anteverted. There are no palpable adnexal masses. However, this part of the exam is limited secondary to her body habitus. On rectovaginal exam, there are no palpable masses. DESCRIPTION OF PROCEDURE: The patient was properly identified. Informed consent was obtained. She was then taken to the operating room where general ADMIT: 01/18/2017 RM/LOC: 8 [facility] MR#: [id number] [address] [place] [phone] MATTHEW MCKINLEY [address] [place] [address] Operative/Delivery Room Report SEX: F AGE: 66 : 1950 anesthesia was established. She was then placed in the dorsal lithotomy position. A small Vivian speculum was placed in the vagina. This was used to visualize the cervix. The cervix did have a normal appearance. The Pap test was obtained. The speculum was removed. Bimanual exam revealed an enlarged anteverted uterus. Distinct adnexal masses are difficult to delineate secondary to patient's body habitus. Rectovaginal exam was normal and there were no palpable masses. Her bladder was then drained, approximately 200 mL was drained. There was a small amount of blood noted to be coming from the catheter as well. The patient tolerated this portion of the procedure without any difficulty. Following this, she was transferred to the operating room for Dr. Robert to continue with the laminectomy. Please see his portion of the dictation for the remainder of the procedure. Matilde Houston MD/ shelbie JOB #: [id number] CC: Sisi Garcia, Attending Physician Sisi Garcia, Family Physician
--- NOTE | 2017-02-20 08:57 | OR ---
ADMIT: 01/18/2017 RM/LOC: 512 [facility] MR#: [id number] [address] [place], [place] [address] MATTHEW MCKINLEY [address] [place] [address] Operative/Delivery Room Report SEX: F AGE: 66 : 1950 SURGERY DATE: 02/03/2017 SURGEON: Beto Tabares MD PREPROCEDURE DIAGNOSES: 1. Large squamous cell pelvic mass. 2. Colonoscopy screening. POSTPROCEDURE DIAGNOSES: 1. Small left colon polyps. 2. No anorectal lesion. 3. Nonbleeding internal and external hemorrhoids. PROCEDURE: Colonoscopy with cold polypectomy x2. INDICATIONS: Patient is a morbidly obese, 66-year-old, who has never had colonoscopy screening who was found to have a large pelvic mass. Biopsies indicate a squamous cell origin who presents for colonoscopy surveillance to rule out anorectal lesion. FINDINGS: The patient was taken to the endoscopy suite. IV sedation was given, placed in left lateral decubitus position. Colonoscope was introduced through the anorectal area. There was no evidence of an anorectal ulcer mass and/or lesion. We advanced the colonoscope all the way to the cecum and on careful colonoscopic examination with excellent bowel prep, there were no masses or polyps until about 40 cm anal verge where there was a small, 2 mm polyp removed with couple bites of cold biopsy forceps. At 30 cm, there was a little larger, 0.5 cm polyp, removed with several bites of the cold biopsy forceps. There was no diverticular disease. Again the rectal and anorectal region showed no mass and/or lesion or ulcer. There were nonbleeding internal and external hemorrhoids. The colonoscope was removed. The patient tolerated the procedure without difficulty, transferred to recovery in good condition. Beto Tabares MD/ modl JOB #: [id number] CC: Sisi Garcia, Attending Physician Sisi Garcia, Family Physician
--- NOTE | 2017-02-20 08:57 | CO ---
ADMIT: 01/18/2017 RM/LOC: 508 [facility] MR#: [id number] [id number] [place], [place] [address] MATTHEW MCKINLEY [address] [place] [address] Consultation SEX: F AGE: 66 : 1950 Corrected: 01/24/2017 0653 njv DATE OF CONSULTATION: 01/21/2017 ATTENDING PHYSICIAN: Sisi Garcia CONSULTING PHYSICIAN: Beto Tabares MD HISTORY OF PRESENT ILLNESS: The patient is a 66-year-old female with a history of some type of spinal tumor removed in the , who has been getting along fairly well, had some issues with paralysis surrounding that surgery, but is getting along on a walker. She recently developed troubles with her gait and lower extremity pain. She was brought in and has had extensive workup which eventually led to a CT scan of the abdomen and pelvis, which has found about 20 cm right adnexal mass. She is in the process of workup for this. I believe Dr. Debbie Bailey's involved, and there is some discussion regarding surgical removal of this pelvic mass. She has never had a colonoscopy. Recent history, she has had a good appetite. She has been eating just fine. Her bowels have been working normally. Struggles a little bit with constipation. Has known hemorrhoids and will get little blood on the toilet paper. She does use frequent preparation H, but again her bowels have been functioning normally. She struggles with venous stasis disease, ulcerations on her lower extremities. 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 She has a history of hypertension. ALLERGIES: CODEINE. SOCIAL HISTORY: She is a nondrinker, nonsmoker. MEDICATIONS: Include; 1. Lopressor. 2. Oxybutynin. 3. Potassium. 4. Aspirin. 5. Lasix. 6. Fish oil. 7. Enalapril. 8. Hydrochlorothiazide. REVIEW OF SYSTEMS: Denies headaches. Denies chest pain, or shortness of breath. Denies any abdominal pain. Denies any change in her bowel movements. Struggles little bit with chronic constipation. Currently has an active urinary tract infection which she is currently being treated for with chronic lower venous stasis ulcers and disease. PHYSICAL EXAMINATION: GENERAL: She is afebrile. ADMIT: 01/18/2017 RM/LOC: 508 [facility] MR#: [id number] [address] [address] MARYSHAWN MATTHEW A [address] [place] [address] Consultation SEX: F AGE: 66 : 1950 VITALS: Stable. HEART: Regular. LUNGS: Clear. ABDOMEN: Soft, nondistended, and nontender. EXTREMITIES: She has stasis dermatitis and venous insufficiency changes and ulcers on her lower extremities. ASSESSMENT AND PLAN: The patient is a 66-year-old with a urinary tract infection, on antibiotics. Venous stasis disease, getting wound care and treatment, who has a large 20 cm pelvic mass that I believe arrangements were being made for removal. Discussion on my part was whether she needs a colonoscopy or not. Certainly, she could have a colonoscopy at any time. I do not think it has any relationship with her pelvic mass. As she is completely asymptomatic from a bowel perspective, I do not believe this is a colon malignancy. Certainly a colonoscopy could be potentially done preoperatively if that is the wishes of her gynecologic whether Dr. Bailey or referring physician would want that done, we could certainly do that or while in the hospital or even as an outpatient. Beto Tabares MD/ shelbie JOB #: [id number] CC: Sisi Garcia, Attending Physician Sisi Garcia, Family Physician Corrected: 01/24/2017 0653 njv
== END 2017-02-04 11:03 | disposition short-term general hospital (02) | DRG 519 ==
LOC: ER 09:52 → 5MS 12:31
PROVIDERS: ADMIT Family Medicine
PROC: 0GBG3ZX Excision of Left Thyroid Gland Lobe, Percutaneous Approach, Diagnostic (ICD-10-PCS; 2017-01-24)
PROC: 0WBH3ZX Excision of Retroperitoneum, Percutaneous Approach, Diagnostic (ICD-10-PCS; 2017-01-24)
PROC: 30233N1 Transfusion of Nonautologous Red Blood Cells into Peripheral Vein, Percutaneous Approach (ICD-10-PCS; principal; 2017-01-27)
PROC: 00NY0ZZ Release Lumbar Spinal Cord, Open Approach (ICD-10-PCS; principal; 2017-01-27)
PROC: 8E0UXY7 Examination of Female Reproductive System (ICD-10-PCS; principal; 2017-01-27)
PROC: 0DBM8ZX Excision of Descending Colon, Via Natural or Artificial Opening Endoscopic, Diagnostic (ICD-10-PCS; 2017-02-03)
DX: M48.06 Spinal stenosis, lumbar region (principal); C79.89 Secondary malignant neoplasm of other specified sites; G82.20 Paraplegia, unspecified; L03.115 Cellulitis of right lower limb; L03.116 Cellulitis of left lower limb; L97.929 Non-pressure chronic ulcer of unspecified part of left lower leg with unspecified severity; L97.919 Non-pressure chronic ulcer of unspecified part of right lower leg with unspecified severity; Z68.41 Body mass index [BMI] 40.0-44.9, adult; N39.0 Urinary tract infection, site not specified; C80.1 Malignant (primary) neoplasm, unspecified; E66.01 Morbid (severe) obesity due to excess calories; B96.20 Unspecified Escherichia coli [E. coli] as the cause of diseases classified elsewhere; D50.9 Iron deficiency anemia, unspecified; C73 Malignant neoplasm of thyroid gland; E87.6 Hypokalemia; E83.52 Hypercalcemia; D12.4 Benign neoplasm of descending colon; K80.20 Calculus of gallbladder without cholecystitis without obstruction; I87.2 Venous insufficiency (chronic) (peripheral); I10 Essential (primary) hypertension; F32.9 Major depressive disorder, single episode, unspecified; K64.4 Residual hemorrhoidal skin tags; K64.8 Other hemorrhoids; D25.9 Leiomyoma of uterus, unspecified; N39.41 Urge incontinence; Z79.82 Long term (current) use of aspirin; Z82.49 Family history of ischemic heart disease and other diseases of the circulatory system; Z16.21 Resistance to vancomycin; Z99.3 Dependence on wheelchair; Z91.19 Patient's noncompliance with other medical treatment and regimen